=== PATIENT | male | born 1995 | race Caucasian/White ===

== ENCOUNTER 2020-03-26 02:49 | Emergency (ER) | payer SELFPAY ==
[~2020-03-26] VITALS: Ht 165.1 cm; Wt 134.7 kg
[2020-03-26 02:59] VITALS: Ht 165.1 cm; Wt 134.7 kg
[2020-03-26 04:38] VITALS: BP 120/54
== END 2020-03-26 04:38 | disposition home or self-care (01) ==
LOC: ED 02:49
DX: H10.33 Unspecified acute conjunctivitis, bilateral (principal); H60.91 Unspecified otitis externa, right ear; R30.0 Dysuria